=== PATIENT | female | born 1960 | race Caucasian/White ===

== ENCOUNTER → 2020-11-27 08:17 | Outpatient (CLI) | payer OTHER, SELFPAY ==
[2020-11-27] MEDS: COVID-19 VACC #1, MRNA(MOD) 100 MCG/0.5 ML VIAL IM (08:25)
== END ==
PROVIDERS: Visit Provider Internal Medicine
DX: Z23 Encounter for immunization (principal)
CPT/HCPCS: 0011A; 91301

== ENCOUNTER → 2020-12-25 08:19 | Outpatient (CLI) | payer OTHER, SELFPAY ==
[2020-12-25] MEDS: COVID-19 VACC #2, MRNA(MOD) 100 MCG/0.5 ML VIAL IM (08:23)
== END ==
PROVIDERS: Visit Provider Internal Medicine
DX: Z23 Encounter for immunization (principal)
CPT/HCPCS: 0012A; 91301

== ENCOUNTER 2023-05-19 07:28 | Emergency (ER) | payer BC, SELFPAY ==
[2023-05-19 07:31] VITALS: BP 148/69; PULSE 77; RESP 19; TEMP 36.4; O2SAT 99; BMI 31.6
--- NOTE | 2023-05-19 08:08 | ED.EYEPROB ---
HPI - Eye Problem General Chief complaint: Eye Problems Stated complaint: something in RT eye Time Seen by Provider: 05/19/23 07:48 Source: patient Mode of arrival: Family Vehicle History of Present Illness HPI Narrative: Patient here for subconjunctival hematoma of the right eye. Patient is not on any blood thinners. No known trauma. No known foreign body. No unusual event she states yesterday. She does wear corrective glasses. She is 2019 on the left eye 2024 on the right eye, 2019 with both eyes. This is with use of corrective glasses. Patient awoke this morning felt like there was something in her right eye. She did rub it. Denies poking her eye or using her fingernails to the eye. She went and looked in the mirror and noticed blood. Has some discomfort but mild. Feels better keeping eye closed. No photophobia. No double vision. Does have slight blurry vision. History of glaucoma. She just had office appointment with her pick and shovel man in [place] last week, Dr. Hoyos. I will call the office when they open at 9:00 a.m.. In the meantime patient agrees for CBC and coagulation studies. Patient in no distress. Patient is not on any blood thinners Related Data Home Medications Medication Instructions Recorded Confirmed latanoprost 0.005 % eye drops 1 drp EYE-RIGHT BEDTIME 07/16/18 05/19/23 naproxen sodium 220 mg capsule 220 mg PO BID PRN 07/16/18 07/16/18 (Aleve) Previous Rx's Medication Instructions Recorded mupirocin 2 % topical ointment 1 applic topical TID #30 grams 07/16/18 Allergies Allergy/AdvReac Type Severity Reaction Status Date / Time Sulfa (Sulfonamide Allergy Unknown Verified 05/19/23 08:27 Antibiotics) [SULFA (SULFONAMIDE ANTIBIOTICS)] Review of Systems Review of Systems Narrative: GENERAL: negative chills, fatigue, malaise, fever, sweats. HEENT: negative sinus pain, ear pain, sore throat, positive vision changes, positive eye discomfort RESPIRATORY: negative dyspnea, cough CARDIOVASCULAR: negative chest pain, palpitations GASTROINTESTINAL: negative nausea, vomiting, abdominal pain : negative dysuria, frequency, hematuria MUSCULOSKELETAL: negative muscle or bony pain SKIN: negative rash, skin lesions NEUROLOGIC: negative weakness, numbness ROS Unobtainable: All systems reviewed & are unremarkable except as noted in HPI and below Patient History Social History Smoking Status: Current every day smoker Smoking Status: Current every day smoker tobacco type: cigarettes alcohol intake frequency: 0-2 drinks per day Substance Use Type: does not use Exam Narrative Exam Narrative: GENERAL: in no distress, not toxic not dyspneic HEAD: Normocephalic. EYES: Pupils equal round and reactive, EOMI, there is subconjunctival hematoma of the right eye but there is sparing between the 9:00 a.m. and 11:00 a.m. positions. At this time likely not corneal injury. No fluorescein indicated. Patient in no distress. Aquiles-Pen used with proparacaine. First eye pressure was 10, 2nd pressure was 12 ENT: Mucous membranes moist. NEURO: AOx4. SKIN: Warm and dry PSYCH: Not anxious, is cooperative Initial Vital Signs Initial Vital Signs: Vital Signs Temperature 97.6 F 05/19/23 07:31 Pulse Rate 77 05/19/23 07:31 Respiratory Rate 19 05/19/23 07:31 Blood Pressure 148/69 H 05/19/23 07:31 Pulse Oximetry 99 05/19/23 07:31 Oxygen Delivery Method Room Air 05/19/23 07:31 Course Orders Ordered: Discontinued Medications Proparacaine HCl (Proparacaine 0.5% Ophth Odalys) 1 drops EYE-RIGHT NOW ONE Stop: 05/19/23 08:25 Last Admin: 05/19/23 08:28 Dose: 1 drop Documented By: RLS Vital Signs Vital signs: Vital Signs - 8 hr 05/19/23 07:31 Temperature 97.6 F Pulse Rate 77 Respiratory Rate 19 Blood Pressure 148/69 H Pulse Oximetry 99 Oxygen Delivery Method Room Air MDM - Eye Problem Lab Data 05/19/23 08:20 05/19/23 08:20 Labs: Lab Results 05/19/23 05/19/23 05/19/23 Range/Units 08:20 08:20 08:20 WBC 5.6 (4.5-11.0) X10^3/uL RBC 5.08 (4.0-5.2) X10^6/uL Hgb 13.8 (12.0-16.0) g/dL Hct 41.7 (36-46) % MCV 82.0 (80-100) fL MCH 27.2 (26-34) PG MCHC 33.2 (30-36) % RDW 13.5 (11.6-14.8) % Plt Count 265 (150-400) X10^3/uL Neut % (Auto) 62.4 (50-75) % Lymph % (Auto) 28.5 (25-40) % Ralls % (Auto) 6.3 (3-14) % Eos % (Auto) 1.9 L (2-4) % Baso % (Auto) 0.9 (0-2) % Neut # (Auto) 3500 (9337-8118) /uL Lymph # (Auto) 1600 (1130-6740) /uL Ralls # (Auto) 400 (0-900) /uL Eos # (Auto) 100 (0-450) /uL Baso # (Auto) 0 (0-100) /uL PT 11.2 (10.1-12.7) SECONDS INR 1.0 (0.9-1.3) APTT 36 (26-36) SECONDS Sodium 138 (137-145) mmol/L Potassium 4.5 (3.4-5.1) mmol/L Chloride 107 (98-107) mmol/L Carbon Dioxide 24 (22-32) mmol/L BUN 15 (7-17) mg/dL Creatinine 0.63 (0.52-1.04) mg/dL Estimated GFR > 60 (>60) mL/min BUN/Creatinine Ratio 23.8 H (6-22) Glucose 98 (80-110) mg/dL Calcium 8.9 (8.4-10.2) mg/dL Total Bilirubin 0.3 (0.2-1.3) mg/dL AST 25 (14-36) IU/L ALT 21 (<35) IU/L Alkaline Phosphatase 76 (38-126) U/L Total Protein 6.8 (6.3-8.2) g/dL Albumin 3.9 (3.5-5.0) g/dL Globulin 2.9 (1.7-4.1) g/dL Albumin/Globulin Ratio 1.3 (1.0-2.8) MDM Narrative Medical decision making narrative: Patient here for subconjunctival hematoma of the right eye. Patient is not on any blood thinners. No known trauma. No known foreign body. No unusual event she states yesterday. She does wear corrective glasses. She is 2019 on the left eye 2024 on the right eye, 2019 with both eyes. This is with use of corrective glasses. Patient awoke this morning felt like there was something in her right eye. She did rub it. Denies poking her eye or using her fingernails to the eye. She went and looked in the mirror and noticed blood. Has some discomfort but mild. Feels better keeping eye closed. No photophobia. No double vision. Does have slight blurry vision. History of glaucoma. She just had office appointment with her pick and shovel man in [place] last week, Dr. Hoyos. I will call the office when they open at 9:00 a.m.. In the meantime patient agrees for CBC and coagulation studies. Patient in no distress. Patient is not on any blood thinners After history and exam CBC CMP PT INR PTT, call to patient's pick and shovel man [facility] CC: Right eye discussed Complicating co-morbidities: History of glaucoma Data collected from: Patient Medical records reviewed: No recent visit for this complaint Differential considered: Includes but not limited to subconjunctival hemorrhage, foreign body, thrombocytopenia, Exam documented above, pertinent findings include: Subconjunctival hematoma Lab Test results independently reviewed as above. Pertinent findings: WBC 5.6 hemoglobin 13.8 platelets 265 INR 1.0 Imaging studies independently reviewed: None indicated Consultations: 10:00 a.m.. Spoke with patient's pick and shovel man Dr. Alejo, he wants to see patient in his office today at 12:45 p.m.. Patient to arrive at 12:30 p.m. in his office. Reviewed laboratory studies and exam with him. Treatments: None indicated Re-evaluations: 10:05 a.m.. Reviewed discussion with her pick and shovel man. As well as exam. She does agree for follow up this morning/afternoon with her pick and shovel man. She does recall she did rub her eyes vigorously because she thought there was an eyelash in her right eye. Discussion: Appropriate for discharge home. Exam and laboratory studies reassuring as well as visual acuity. Patient will see her pick and shovel man here in 2-1/2 hours. Return precautions reviewed with her. She desires discharge home. At this time source of hemorrhage could be traumatic from rubbing her eyes. She is not on any blood thinners. There is been no further progression of hemorrhage. Orbital pressure reassuring. Diagnosis: Subconjunctival hemorrhage Discharge Plan Departure Patient Disposition: Home Clinical Impression: Subconjunctival hemorrhage Instructions: DI for Subconjunctival Hemorrhage Activity Restrictions/Additional Instructions: Please see your pick and shovel man today at 12:30 p.m.. He is expecting you. There may be a little bit of a wait time when you get there but he is expecting you. He has been contacted today by phone. Return if worse if any questions or concerns Prescriptions: No Action latanoprost 0.005 % drops 1 drp EYE-RIGHT BEDTIME naproxen sodium [Aleve] 220 mg capsule 220 mg PO BID PRN mupirocin 2 % ointment 1 applic TOP TID Qty: 30 0RF Referrals: Miscellaneous,Doctor, [Primary Care Provider] - Stand Alone Forms: Patient Portal/API
[2023-05-19] MEDS: PROPARACAINE 0.5% OPHTH SOL 1 DROPS EYE-RIGHT (08:28)
[2023-05-19 08:31] LABS: Add Manual Diff / Slide Review NO; Basophils Absolute Auto 0 /uL (0-100); Basophils Percent Auto 0.9 % (0-2); Eosinophils Absolute Auto 100 /uL (0-450); Eosinophils Percent Auto 1.9 % (2-4); Hematocrit 41.7 % (36-46); Hemoglobin 13.8 g/dL (12.0-16.0); Lymphocytes Absolute Auto 1600 /uL (1100-4500); Lymphocytes Percent Auto 28.5 % (25-40); Mean Corpuscular HGB Conc 33.2 % (30-36); Mean Corpuscular Hemoglobin 27.2 PG (26-34); Monocytes Absolute Auto 400 /uL (0-900); Monocytes Percent Auto 6.3 % (3-14); Neutrophils Absolute Auto 3500 /uL (1500-7000); Neutrophils Percent Auto 62.4 % (50-75); Platelet Count 265 X10^3/uL (150-400); Red Blood Cell Count 5.08 X10^6/uL (4.0-5.2); Red Cell Distribution Width 13.5 % (11.6-14.8); White Blood Cell Count 5.6 X10^3/uL (4.5-11.0)
[2023-05-19 08:39] LABS: Prothrombin Time 11.2 SECONDS (10.1-12.7)
[2023-05-19 08:42] LABS: PTT Partial Thromboplastin Tim 36 SECONDS (26-36)
[2023-05-19 08:44] LABS: Alanine Aminotransferase 21 IU/L (<35); Albumin 3.9 g/dL (3.5-5.0); Albumin Globulin Ratio 1.3 (1.0-2.8); Alkaline Phosphatase 76 U/L (38-126); Aspartate Aminotransferase 25 IU/L (14-36); BUN Creatinine Ratio 23.8 (6-22); Bilirubin Total 0.3 mg/dL (0.2-1.3); Blood Urea Nitrogen 15 mg/dL (7-17); Calcium 8.9 mg/dL (8.4-10.2); Carbon Dioxide 24 mmol/L (22-32); Chloride 107 mmol/L (98-107); Estimated Glomerular Filt Rate > 60 mL/min (>60); Globulin 2.9 g/dL (1.7-4.1); Glucose 98 mg/dL (80-110); HEMOLYSIS 29 (0-50); Potassium 4.5 mmol/L (3.4-5.1); Sodium 138 mmol/L (137-145); Total Protein 6.8 g/dL (6.3-8.2)
--- NOTE | 2023-05-19 09:32 | PC.NURSE ---
Pt provided their Ophthalmologists number to call out to for a consult. 2 calls, but no answer. Left a message.
--- NOTE | 2023-05-19 09:35 | PC.NURSE ---
Went to call pt back to a room and she had gone out to her car. Security will call when pt comes back in
== END 2023-05-19 10:07 | disposition home or self-care (01) ==
PROVIDERS: Emergency Provider Emergency Medicine
DX: H11.31 Conjunctival hemorrhage, right eye (principal)
CPT/HCPCS: 80053; 85025; 85610; 85730; 99282; 99283